=== PATIENT | male | born 1995 | race Caucasian/White ===

== ENCOUNTER 2017-10-29 18:06 | Emergency (ER) | payer BC ==
--- NOTE | 2017-10-29 18:18 | EDM.PDOC ---
ED HPI GENERAL MEDICAL PROBLEM - General Chief Complaint: Genitourinary Problem Stated Complaint: PAINFUL URINATION Time Seen by Provider: 10/29/17 18:18 Source of Information: Reports: Patient History Limitations: Reports: No Limitations - History of Present Illness INITIAL COMMENTS - FREE TEXT/NARRATIVE: HISTORY AND PHYSICAL: 22-year-old male presenting with painful urination History of Present Illness: []Young man states that he is had this pain for the last 3 weeks some of the burning when he urinated has resolved however he now has some white exudate at times. He has pain when he urinates. He does state that he has had a new partner with unprotected intercourse recently Review of Systems: As per history of present illness and below otherwise all systems reviewed and negative. Past medical history: As per history of present illness and as reviewed below otherwise noncontributory. Surgical history: As per history of present illness and as reviewed below otherwise noncontributory. Social history: No reported history of drug or alcohol abuse. Family history: As per history of present illness and as reviewed below otherwise noncontributory. Physical exam: Alert and oriented male who is quite anxious about being in the emergency department. Answering questions in full sentences without any shortness of breath. HEENT: Atraumatic, normocehpalic, pupils reactive, negative for conjunctival pallor or scleral icterus, mucous membranes moist, throat clear, neck supple, nontender, trachea midline. Lungs: Clear to auscultation, breath sounds equal bilaterally, chest non tender. Heart: S1S2, regular, negative for clicks, rubs, or JVD. Abdomen: Soft, nondistended, nontender. Negative for masses or hepatossplenmegaly. Negative for costovertebral tenderness. Pelvis: Stable nontender. Genitourinary: Deferred. Rectal: Deferred Extremities: Atraumatic, negative for cords or calf pain. Neurovascular unremarkable. Neuro: Awake, alert, oriented. Cranial nerves II through XII unremarkable. Cerebellum unremarkable. Motor and sensory unremarkable throughout. Exam nonfocal. Diagnostics: []UA urine culture GC chlamydia Therapeutics: []Rocephin 250 IM Zithromax 1 g by mouth Impression: []High-risk sexual activity Plan: [] Discharge Follow-up with your primary care provider Return to the emergency room as directed Definitive disposition and diagnosis as appropriate pending reevaluation and review of above. Onset: Gradual Duration: Week(s): Location: Reports: Other Severity: Moderate Improves with: Reports: None Worsens with: Reports: None - Related Data Allergies Allergy/AdvReac Type Severity Reaction Status Date / Time sulfamethoxazole Allergy Rash Verified 10/29/17 18:14 [From Bactrim] trimethoprim [From Bactrim] Allergy Rash Verified 10/29/17 18:14 Home Meds: Home Meds . [No Known Home Meds] 10/29/17 [History] ED ROS GENERAL - Review of Systems Review Of Systems: ROS reveals no pertinent complaints other than HPI. ED EXAM, GI/ABD - Physical Exam Exam: See Below (see dictation) Course - Vital Signs Last Recorded V/S: Last Vital Signs Temp 36.6 C 10/29/17 18:11 Pulse 69 10/29/17 18:11 Resp 20 10/29/17 18:11 BP 142/100 H 10/29/17 18:11 Pulse Ox 100 10/29/17 18:11 - Orders/Labs/Meds Orders: Active Orders 24 hr Category Date Time Status CHLAMYDIA AND GONORRHEA BY TMA Stat Lab 10/29/17 18:18 Ordered UA W/MICROSCOPIC [URIN] Stat Lab 10/29/17 18:18 Ordered Azithromycin [Zithromax] Med 10/29/17 18:30 Ordered 1,000 mg PO Q24H cefTRIAXone [Rocephin] 250 mg Med 10/29/17 18:26 Ordered Lidocaine 1% [Xylocaine-MPF 1%] 1 ml IM ONETIME Departure - Departure Time of Disposition: 18:29 Disposition: Home, Self-Care 01 Condition: Good Clinical Impression: High risk sexual behavior Qualifiers: High risk sexual behavior type: unspecified Qualified Code(s): Z72.51 - High risk heterosexual behavior - Discharge Information *PRESCRIPTION DRUG MONITORING PROGRAM REVIEWED*: Not Applicable *COPY OF PRESCRIPTION DRUG MONITORING REPORT IN PATIENT ALICIA: Not Applicable Instructions: Sexually Transmitted Disease, [id number], Safe Sex, Preventing Sexually Transmitted Infections, Adult Referrals: PCP,None [Primary Care Provider] - Forms: ED Department Discharge Additional Instructions: The following information is given to patients seen in the emergency department who are being discharged to home. This information is to outline your options for follow-up care. We provide all patients seen in our emergency department with a follow-up referral. The need for follow-up, as well as the timing and circumstances, are variable depending upon the specifics of your emergency department visit. If you don't have a primary care physician on staff, we will provide you with a referral. We always advise you to contact your personal physician following an emergency department visit to inform them of the circumstance of the visit and for follow-up with them and/or the need for any referrals to a consulting specialist. The emergency department will also refer you to a specialist when appropriate. This referral assures that you have the opportunity for followup care with a specialist. All of these measure are taken in an effort to provide you with optimal care, which includes your followup. Under all circumstances we always encourage you to contact your private physician who remains a resource for coordinating your care. When calling for followup care, please make the office aware that this follow-up is from your recent emergency room visit. If for any reason you are refused follow-up, please contact the [facility] emergency department at and asked to speak to the emergency department charge nurse. You were given antibiotics of Rocephin and Zithromax while in the emergency department to suspected STD. Follow-up with your primary care provider for reevaluation Return to emergency room as directed - My Orders Last 24 Hours: My Active Orders 10/29/17 18:18 CHLAMYDIA AND GONORRHEA BY TMA Stat UA W/MICROSCOPIC [URIN] Stat 10/29/17 18:26 cefTRIAXone [Rocephin] 250 mg Lidocaine 1% [Xylocaine-MPF 1%] 1 ml IM ONETIME 10/29/17 18:30 Azithromycin [Zithromax] 1,000 mg PO Q24H - Assessment/Plan Last 24 Hours: My Active Orders 10/29/17 18:18 CHLAMYDIA AND GONORRHEA BY TMA Stat UA W/MICROSCOPIC [URIN] Stat 10/29/17 18:26 cefTRIAXone [Rocephin] 250 mg Lidocaine 1% [Xylocaine-MPF 1%] 1 ml IM ONETIME 18 18:30 Azithromycin [Zithromax] 1,000 mg PO Q24H
[2017-10-29] MEDS ORDERED: cefTRIAXone 250 MG in Lidocaine 1% 1 ML IM ONE (18:26)
[2017-10-29] MEDS ORDERED: Azithromycin 250 MG Tab PO SCH (18:30)
== END 2017-10-29 19:30 | disposition home or self-care (01) ==
LOC: MW.ED 18:06
DX: R30.9 Painful micturition, unspecified (principal); Z72.51 High risk heterosexual behavior; Z88.2 Allergy status to sulfonamides; Z88.1 Allergy status to other antibiotic agents
CPT/HCPCS: 81001; 87491; 87591; 96372; 99283; A9270; J0696; J2001